=== PATIENT | female | born 1945 | race African-American/Black ===

== ENCOUNTER 2016-09-22 09:21 | Day surgery (SDC) | payer OTHER ==
[2016-09-22 11:20] VITALS: TEMP 97.5
[2016-09-22 12:25] VITALS: BP 116/67; PULSE 60
--- NOTE | 2016-09-23 13:00 | PATH ---
Surgical Pathology Report Patient Name: JOIE THOMAS [facility]. Rec. #: [id number] /Age/Gender: 1945 (Age: 71) / F Account: [id number] Location: [facility]-ENDOSCOPY Taken: 09/22/2016 Received: 09/22/2016 Reported: 09/23/2016 Physicians: Beau Weinberg M.D. Specimen(s) Received A: BX DUODENUM B: BX ATROPHIC ANTRUM C: BX POLYP DISTAL TRANSVERSE COLON D: BX HEPATIC FLEXURE Clinical History Early satiety, history of colon polyp Atrophic gastritis, hiatal hernia, diverticulosis, colon polyps Final Diagnosis A. DUODENUM, BIOPSY: DUODENAL MUCOSA WITH MILD CHRONIC INFLAMMATION. NO HISTOLOGIC EVIDENCE OF GLUTEN SENSITIVE ENTEROPATHY (CELIAC DISEASE). B. STOMACH, ATROPHIC ANTRUM, BIOPSY: GASTRIC ANTRAL MUCOSA WITH MODERATE CHRONIC GASTRITIS WITH INTESTINAL METAPLASIA AND REACTIVE GASTROPATHY. NEGATIVE FOR DYSPLASIA. IMMUNOSTAIN FOR H. PYLORI IS NEGATIVE FOR ORGANISMS. C. COLON, DISTAL TRANSVERSE, POLYP, BIOPSY: TUBULAR ADENOMA. D. COLON, HEPATIC FLEXURE, POLYP, POLYPECTOMY: FRAGMENTS OF TUBULAR ADENOMA. Electronically Signed Won Echeverria M.D. Gross Description A. Received in formalin, labeled "biopsy duodenum" are 2 gonzalez, irregular portions of soft tissue measuring 0.2 and 0.9 cm in greatest dimension. The specimens are submitted in toto in one cassette. B. Received in formalin, labeled "biopsy atrophic antrum" are 2 gonzalez, irregular portions of soft tissue averaging 0.2 cm in greatest dimension. The specimens are submitted in toto in one cassette. C. Received in formalin, labeled "biopsy polyp distal transverse" is a gonzalez, irregular portion of soft tissue measuring 0.2 cm in greatest dimension. The specimen is submitted in toto in one cassette. D. Received in formalin, labeled "polyp hepatic flexure" are 2 gonzalez, irregular portions of soft tissue measuring 0.2 and 0.3 cm in greatest dimension. The specimens are submitted in toto in one cassette. 09/22/201609/22/2016
== END 2016-09-22 12:25 | disposition home or self-care (01) ==
LOC: JASU-ENDO 09:21
PROVIDERS: ATTEND Internal Medicine Gastroenterology
PROC: 0DBL8ZX Excision of Transverse Colon, Via Natural or Artificial Opening Endoscopic, Diagnostic (ICD-10-PCS; 2016-09-22)
PROC: 0DB98ZX Excision of Duodenum, Via Natural or Artificial Opening Endoscopic, Diagnostic (ICD-10-PCS; 2016-09-22)
PROC: 0DB68ZX Excision of Stomach, Via Natural or Artificial Opening Endoscopic, Diagnostic (ICD-10-PCS; 2016-09-22)
PROC: 0DBK8ZX Excision of Ascending Colon, Via Natural or Artificial Opening Endoscopic, Diagnostic (ICD-10-PCS; principal; 2016-09-22 10:00)
DX: D12.2 Benign neoplasm of ascending colon (principal); D12.3 Benign neoplasm of transverse colon; K57.30 Diverticulosis of large intestine without perforation or abscess without bleeding; K64.8 Other hemorrhoids; K29.80 Duodenitis without bleeding; K29.50 Unspecified chronic gastritis without bleeding; K31.9 Disease of stomach and duodenum, unspecified; R68.81 Early satiety; K44.9 Diaphragmatic hernia without obstruction or gangrene; Z86.010 Personal history of colon polyps
CPT/HCPCS: 88305-TC; 88342-TC

== ENCOUNTER 2018-07-26 10:33 | Emergency (ER) | payer OTHER ==
[2018-07-26 10:39] VITALS: TEMP 98.3; BMI 31.2
--- NOTE | 2018-07-26 11:31 | PDOC ---
History of Present Illness - General Chief Complaint: Rectal Bleed Stated Complaint: SENT BY PCP/ BLOOD WORK Time Seen by Provider: 07/26/18 11:18 History Source: Patient Exam Limitations: No Limitations - History of Present Illness Initial Comments: 07/26/18 12:11 73YOF with h/o chronic fluctuating GERD with gastritis (previously warranting upper endoscopy), NIDDM, HTN, and HLD who p/w black stool for the past 7 days as well as epigastric discomfort similar to her prior discomfort. She saw her GI doctor (Dr. Weinberg) who noted the black stool on exam this morning and sent her into the ED. She has not been taking iron, pepto-bismol, or excessive NSAIDs and she has been taking her normal pantoprazole (although she reports taking only one a day in the recent past when she should have been taking 2 a day). Denies recent f/c/n/v/d/c, BRBPR, chest pain, SOB, palpitations, HODGE, lightheadedness/dizziness, LOC, or other symptoms. Past History - Past Medical History Allergies/Adverse Reactions: Allergies Allergy/AdvReac Type Severity Reaction Status Date / Time No Known Allergies Allergy Verified 07/26/18 10:39 Home Medications: Ambulatory Orders Atorvastatin Ca [Lipitor] 40 mg PO HS 09/21/16 Levothyroxine Sodium [Synthroid] 88 mcg PO DAILY 09/21/16 Nifedipine ER [Procardia XL -] 30 mg PO DAILY 09/21/16 metFORMIN HCL [Metformin HCl] 1,000 mg PO BID 09/21/16 Aspirin [Aspirin EC] 81 mg PO DAILY 07/26/18 Cyanocobalamin (Vitamin B-12) [Vitamin B-12] 500 mcg PO DAILY 07/26/18 Krill/Om-3/Dha/Epa/Phospho/Ast [Megared [place]-3 Krill Oil Sfgl] 1 each PO DAILY 07/26/18 Magnesium 400 mg PO DAILY 07/26/18 Mv-Mn/Folic Acid/Vit [id number] [Alive Once Daily Women 50 Plus] 1 each PO DAILY 07/26/18 Pantoprazole Sodium [Protonix -] 20 mg PO BID 07/26/18 Ubidecarenone [Co Q-10] 200 mg PO DAILY 07/26/18 COPD: No Diabetes: Yes (NIDDM) GI Disorders: Yes (COLON POLYP, INTESTINAL METAPLASIA OF GASTRIC MUCOSA, IBS, HH ) HTN: Yes Hypercholesterolemia: Yes Thyroid Disease: Yes (HYPO) - Surgical History Abdominal Surgery: Yes Cholecystectomy: Yes Orthopedic Surgery: Yes (RT KNEE REPLACEMENT) - Suicide/Smoking/Psychosocial Hx Smoking History: Never smoked Have you smoked in the past 12 months: No Information on smoking cessation initiated: No Hx Alcohol Use: No Drug/Substance Use Hx: No Substance Use Type: None Review of Systems - Review of Systems Able to Perform ROS?: Yes Comments:: 07/26/18 12:17 GEN: no fever, chills, malaise, generalized weakness, or weight change HEENT: no ear pain, sore throat, vision change, or eye pain CV: no chest pain, palpitations, lightheadedness, syncope, or edema RESP: no cough, wheezing, or SOB GI: black stool, abdominal pain, no nausea, vomiting, diarrhea, constipation, or white/bloody stool : no dysuria, hematuria, incontinence, retention, bleeding, or discharge MSK: no neck/back pain, muscle weakness/pain, or joint swelling/pain NEURO: no headache, seizure, vertigo, numbness, tingling, or focal weakness PSYCH: no substance use, no behavior change SKIN: no jaundice, no rash ROS otherwise negative except as noted in HPI *Physical Exam - Vital Signs Last Vital Signs Temp Pulse Resp BP Pulse Ox 98.3 F 77 18 134/72 100 07/26/18 10:37 07/26/18 10:37 07/26/18 10:37 07/26/18 10:37 07/26/18 10:37 - Physical Exam Comments: 07/26/18 12:24 GENERAL: well-appearing, A/Ox4, no distress, answers questions appropriately, does not appear pale HEENT: PERRLA, EOMI, moist mucous membranes NECK/BACK: no midline ttp, no spinal stepoff or deformity, no hematoma, full ROM , neck supple CARDIOVASCULAR: regular rate/rhythm, normal S1S2, no MGR, strong peripheral pulses, capillary refill <2 seconds, extremities wwp, no edema LUNGS/RESPIRATORY: no respiratory distress, CTAB GI/ABDOMEN: symmetric disw-dv-wjnc, normoactive BS, soft, minimal epigastric ttp , no midline pulsatile masses, rectal with small non-thrombosed non-tender external hemorrhoid and small amount of dark stool (not black) : no CVA tenderness EXTREMITIES: no muscle atrophy, no acute deformity SKIN: warm and dry, no pallor, no jaundice, no rash, no bruising, no skin breakdown, no cuts, no lesions NEUROLOGICAL: GCS 15, CN II-XII grossly intact, 5/5 strength proximally and distally, no facial droop ED Treatment Course - LABORATORY CBC & Chemistry Diagram: 07/26/18 11:54 07/26/18 11:54 Medical Decision Making - Medical Decision Making 07/26/18 12:25 Pt p/w report of black stool and epigastric pain. Initial Vital Signs Temp Pulse Resp BP Pulse Ox 98.3 F 77 18 134/72 100 07/26/18 10:37 07/26/18 10:37 07/26/18 10:37 07/26/18 10:37 07/26/18 10:37 Exam: As noted in Physical Exam section.nontender non-thrombosed external hemorrhoid DDX IBNLT bleeding gastric/duodenal ulcer or malignancy, less likely any cause of typically bright-colored rectal bleeding e/g/ bleeding hemorrhoids (internal vs. external, simple vs. thrombosed), vascular malformation, ruptured diverticulum, diverticulitis, colorectal CA, mesenteric ischemia, anal fissure, ulcerative colitis, AAA/AD, endometriosis, Meckels diverticulum, supratherapeutic INR, etc. W/U ordered: CBCD CMP TS Coags FOBT Tx ordered: IV Pepcid The patient is hemodynamically stable at this time (no hypotension, tachycardia , or reported decreased UOP). Laboratory Tests 07/26/18 07/26/18 07/26/18 11:54 11:54 11:54 WBC 8.7 RBC 4.49 Hgb 12.6 Hct 38.5 MCV 85.7 MCH 28.0 MCHC 32.7 RDW 13.9 Plt Count 277 MPV 9.0 Absolute Neuts (auto) 4.1 Neutrophils % 47.6 Lymphocytes % 43.3 H Monocytes % 6.6 Eosinophils % 1.6 Basophils % 0.9 Nucleated RBC % 0 PT with INR 11.90 INR 1.01 PTT (Actin FS) 34.5 Sodium 137 Potassium 4.4 Chloride 101 Carbon Dioxide 30 Anion Gap 6 L BUN 10 Creatinine 0.6 Est GFR (CKD-EPI)AfAm 103.34 Est GFR (CKD-EPI)NonAf 89.16 Random Glucose 153 H Calcium 9.8 Total Bilirubin 0.5 AST 45 H ALT 64 H Alkaline Phosphatase 80 Total Protein 8.0 Albumin 4.0 Stool Occult Blood 07/26/18 12:00 WBC RBC Hgb Hct MCV MCH MCHC RDW Plt Count MPV Absolute Neuts (auto) Neutrophils % Lymphocytes % Monocytes % Eosinophils % Basophils % Nucleated RBC % PT with INR INR PTT (Actin FS) Sodium Potassium Chloride Carbon Dioxide Anion Gap BUN Creatinine Est GFR (CKD-EPI)AfAm Est GFR (CKD-EPI)NonAf Random Glucose Calcium Total Bilirubin AST ALT Alkaline Phosphatase Total Protein Albumin Stool Occult Blood Negative Reassessment: Patient states feels better, comfortable going home. 07/26/18 13:[address] Weinberg and updated him on the FOBT and h/h results. He is in agreement about plan to discharge home with close outpatient f/u with him. He states the patient should come to his office at [address] after leaving from the ER. Workup is not concerning for emergency-level pathology at this time. The Pt is appropriate for discharge home w/ close outpatient f/u. The Pt is comfortable with this plan and will f/u with Dr. Weinberg this afternoon. Specific return precautions are discussed and they will come back to the ER if necessary. *DC/Admit/Observation/Transfer Diagnosis at time of Disposition: Epigastric pain, Black stool - Discharge Dispostion Disposition: HOME Condition at time of disposition: Stable Decision to Admit order: No - Referrals Referrals: ON STAFF,NOT [Primary Care Provider] - Beau Weinberg MD [Staff Physician] - - Patient Instructions Additional Instructions: You were seen in the ER for black stool and abdominal pain. We did lab work and everything looks normal. You are not anemic. We did an exam and there is no active bleeding. After our assessment, we do not believe you are having a medical emergency at this time, and we believe you are safe to go home. Please follow up with your primary care provider within the next week, or sooner if you have worsening rectal bleeding. Call their clinic [facility], tell them you were seen in the er, and tell them you need an appointment. We are giving you referral information for a tufting supervisor doctor in case you need one. You can always return to the ER for any new or worsening symptoms, especially if you have headache, dizziness, chest pain, or shortness of breath. If you are having severe or life threatening symptoms, or symptoms that make it unsafe to drive or have someone drive you, please call 911. Please go to Dr. Weinberg's office at [address] [place] [address] when you leave the ER today. He would like you to come see him and schedule another appointment. - Post Discharge Activity
[2018-07-26] MEDS ORDERED: FAMOTIDINE 20 MG/50 ML IVPB 20 MG/50 ML MG IVPB ONE ×2 (11:52→12:14)
[2018-07-26 12:18] LABS: BASO % 0.9 % (0-2.0); EOS % 1.6 % (0-4.5); HEMATOCRIT 38.5 % (32.4-45.2); HEMOGLOBIN 12.6 GM/dL (10.7-15.3); LYMPH % 43.3 % (8-40); MCHC 32.7 g/dl (32.0-36.0); MEAN CELL VOLUME 85.7 fl (80-96); MONO % 6.6 % (3.8-10.2); NEUT % 47.6 % (42.8-82.8); PLATELET COUNT 277 K/MM3 (134-434); RBC 4.49 M/mm3 (3.60-5.2); RDW 13.9 % (11.6-15.6); WHITE BLOOD COUNT 8.7 K/mm3 (4.0-10.0)
[2018-07-26 12:40] LABS: INR 1.01 (0.83-1.09); PROTHROMBIN TIME (PATIENT) 11.9 SEC (9.7-13.0)
[2018-07-26 12:43] LABS: ACTIVATED PTT 34.5 SECONDS (25.2-36.5)
[2018-07-26 12:46] LABS: BILIRUBIN,TOTAL 0.5 mg/dL (0.2-1); CALCIUM 9.8 mg/dL (8.5-10.1); CREATININE 0.6 mg/dL (0.55-1.3); POTASSIUM 4.4 mmol/L (3.5-5.1)
--- NOTE | 2018-07-26 13:56 | PDOC ---
Documentation entered by Samantha Pugh SCRIBE, acting as scribe for Melissa Sorto MD. Melissa Sorto MD: This documentation has been prepared by the Keaton diego Renju, SCRIBE, under my direction and personally reviewed by me in its entirety. I confirm that the documentation accurately reflects all work, treatment, procedures, and medical decision making performed by me. Attending Attestation - Resident Resident Name: Kelsi Shafer - ED Attending Attestation I have performed the following: I have examined & evaluated the patient, The case was reviewed & discussed with the resident, I agree w/resident's findings & plan, Exceptions are as noted - HPI HPI: 07/26/18 13:25 73yo F hx GERD, NIDDM, HTN, cholecystectomy, colonoscopy (done in 2017, revealed few polys, no cancerous lesions) and HLD p/w 7 days of epigastric discomfort and intermittent dark stools. Pt was sent by her GI specialist (Dr. Weinberg) who confirmed black stool on rectal exam. No guaic done in the office. Pt denies new dizziness, palpitations, pallor, SOB or chest pain. She denies NSAID use. States she has iron in her MV, does not use peptobismol. Denies current abdominal pain, N/V. Pt is not on a blood thinner. - Physicial Exam PE: 07/26/18 13:25 agree with resident exam - Medical Decision Making 07/26/18 13:42 73yo F presents to the ED from Dr. Weinberg's office after she was found to have dark stools. Vitals wnl Exam with no abd ttp, guauic negative dark brown non melanotic stool Labs within normal limits, no anemia Unclear etiology of dark stool but not likely 2/2 GIB with normal vitals, labs, guaiac, and no risk factors for bleeding. Pt is well appearing, rpt vitals stable Case discussed with Dr. Weinberg who requests that pt go to his office after DC from ED for f/u Pt is clinically stable for DC Please see your primary care doctor within 1 week. Return to the emergency department immediately for any new or concerning symptoms or if your symptoms get worse. Thank you for coming to the Emergency Department today for your care. It was a pleasure to see you today. Please note that your evaluation is INCOMPLETE until you follow-up with your doctor.
[2018-07-26 13:57] VITALS: BP 132/88; PULSE 78
== END 2018-07-26 14:06 | disposition home or self-care (01) ==
LOC: JER 10:33
PROC: 3E033GC Introduction of Other Therapeutic Substance into Peripheral Vein, Percutaneous Approach (ICD-10-PCS; principal; 2018-07-26)
DX: R10.13 Epigastric pain (principal); R19.5 Other fecal abnormalities; I10 Essential (primary) hypertension; E11.9 Type 2 diabetes mellitus without complications; Z79.84 Long term (current) use of oral hypoglycemic drugs; E78.5 Hyperlipidemia, unspecified; E78.00 Pure hypercholesterolemia, unspecified; E03.9 Hypothyroidism, unspecified; Z87.19 Personal history of other diseases of the digestive system
CPT/HCPCS: 36415; 80053; 82272; 85025; 85610; 85730; 86850; 86900; 86901; 96365; 99282-25